=== PATIENT | female | born 1955 | race Caucasian/White ===

== ENCOUNTER 2016-06-02 10:09 | Day surgery (SDC) | payer OTHER ==
[~2016-06-02] VITALS: Ht 167.6 cm; Wt 62.6 kg
[~2016-06-02 10:09] MED LIST: 0.9% Sodium Chloride 1,000 ML IV PRN; Sodium Chloride LOK Flush 10 mL Syringe IV PRN; fentaNYL-PF 50 mCg/mL 2 mL Inj IVPUSH PRN
[2016-06-02 11:18] VITALS: BP 128/85; PULSE 69; RESP 14; O2SAT 100
--- NOTE | 2016-06-02 12:54 | PCM.ENDCOL ---
Colonoscopy Date of Service: Jun 02, 2016 Physician Chad Eric MD Pre Procedure Diagnosis: Screening Post Procedure Dx & Findings: Polyp hemorrhoids Procedure Colonoscopy PROCEDURE IN DETAIL: Prep adequate Withdrawal time 14 minutes After unremarkable rectal examination the Olympus video colonoscope was inserted patient's anal canal and was advanced to cecum. Landmarks were identified including the ileocecal valve and appendiceal orifice. Scope was withdrawn systematically. Visualized colonic mucosa showed healthy shiny mucosa with normal healthy-appearing vasculature. In the descending colon, there was a 4 mm polyp which was removed using cold snare. There was a sub mm residual polyp which was removed completely using cold forcep. The descending colon polyp was completely removed. In the rectum , there was a 2 mm polyp which was removed completely using cold snare. In the rectum retroflexion was done which showed hemorrhoids. Anal canal was inspected carefully on the way out and hemorrhoids noted. Impression Polyps 2 status post complete removal Hemorrhoids Recommendation Repeat colonoscopy 5 years Presedation Assessment Risks and Benefits Informed consent was obtained from the patient after all risks and benefits including but not limited to drug reaction, infection, pain, bleeding, perforation, as well as alternatives were discussed. Patient monitoring Continuous pulse oximetry, cardiac monitoring, blood pressure monitoring, IV access, and oxygen at 2L per nasal cannula. Periprocedural Fentanyl: Fentanyl 125mcg Incrementally Midazolam: Midazolam 7mg Incrementally Complications There were no periprocedural complications identified. Post Procedure Plan Post Procedure Recommendations 1. Restrict activities today. 2. Resume normal activities in the morning. 3. Resume medications. 4. Patient informed of normal post procedure side effects as bloating, drowsiness, blood streaking in the stool. 5. average risk CRCS. If colon polyps come back as: -Hyperplastic- can repeat colonoscopy in 10 years -Tubular adenoma- repeat colonoscopy in 5 years -Tubulovillous/villous adenoma- repeat colonoscopy in 3 years -If any dysplasia- return to clinic as soon as possible 6. Please don't hesitate to call me with any questions. Chad Eric MD Jun 02, 2016 12:54
[2016-06-02 12:59] VITALS: BP 97/64; PULSE 61; RESP 14; O2SAT 98
[2016-06-02 13:10] VITALS: BP 94/63; PULSE 58; RESP 14; O2SAT 100
--- NOTE | 2016-06-03 14:09 | PATH ---
SURGICAL PATHOLOGY Attending Physician:Chad Eric M.D. CASE STATUS: Signed Out PATIENT NAME: KAUSHIK LEE PID: [id number] : 1955 DATE COLLECTED:06/02/2016 21:42 SPECIMEN: 1: Colon, Biopsy 2: Rectum, Biopsy CLINICAL HISTORY: 1). DESCENDING POLYP 2). RECTAL POLYP FINAL DIAGNOSIS: 1.DESCENDING POLYP: SESSILE SERRATED ADENOMA. 2.RECTAL POLYP: HYPERPLASTIC POLYP. ICD10 CODE D12.4 K62.1 GROSS DESCRIPTION: The specimen is received in two formalin filled containers labeled with the patient's name. 1). The specimen is sublabeled "descending polyp" and consists of 3 tiny portions of tissue which aggregate to 0.3 x 0.3 x 0.2 CM. The specimen is entirely submitted in cassette 1A. 2). The specimen is sublabeled "rectal polyp" and consists of a 0.2 x 0.2 x 0.2 CM portion of tissue which is entirely submitted in cassette 2A. 06/02/2016 DAC MICRO DESCRIPTION: See diagnosis. ICD-9 CODES: CPT CODES: 1: 50808 2: 62582 Electronically Signed Out Zina Torres MD [facility] [address], [place] [address] Technical component performed at [facility], [address] [place] [address] Ave[address], [place], [address]
== END 2016-06-02 23:59 | disposition home or self-care (01) ==
LOC: END 10:09
PROVIDERS: ATTEND Internal Medicine
DX: Z12.11 Encounter for screening for malignant neoplasm of colon (principal); D12.4 Benign neoplasm of descending colon; K62.1 Rectal polyp; K64.8 Other hemorrhoids
CPT/HCPCS: 45380; 99153; G0500; J2250; J3010; J7030